=== PATIENT | female | born 1950 | race Caucasian/White ===

== ENCOUNTER 2016-08-09 08:49 | Emergency (ER) | payer OTHER ==
[2016-08-09 08:57] VITALS: BP 150/68; PULSE 70; TEMP 99.2; BMI 24.4
--- NOTE | 2016-08-09 08:59 | PDOC ---
History of Present Illness - General Chief Complaint: Lightheaded Stated Complaint: LIGHT HEADEDNESS/HEAD AHCE Time Seen by Provider: 08/09/16 08:59 History Source: Patient, Old Records Exam Limitations: No Limitations - History of Present Illness Initial Comments: 08/09/16 09:02 65-year-old female with history of h presents to of 3 day history of nasal congestion, fullness in her head and elevated blood pressure at home. The patient has a nonproductive cough.he patient has been keeping a record of her blood pressure at home and has noted her blood pressures to be with systolic pressures in the 155 range at times with an elevated heart rate. The patient denies chest pain, shortness of breath, nausea, vomiting, diarrhea. She does state that she has a"sour feeling "in her stomach at times. the patient also states that she has been having cold like symptoms since the beginning of the new year and has been seen at an urgent care center for the symptoms. Past History - Past Medical History Allergies/Adverse Reactions: Allergies Allergy/AdvReac Type Severity Reaction Status Date / Time No Known Allergies Allergy Verified 08/09/16 08:51 Home Medications: Ambulatory Orders Famotidine [Pepcid -] 20 mg PO DAILY #30 tablet 08/09/16 Lisinopril 5 mg PO DAILY 08/09/16 Metoprolol Tartrate 0 mg PO ASDIR 08/09/16 Oseltamivir Phosphate [Tamiflu -] 75 mg PO BID #10 capsule 08/09/16 Anemia: No Asthma: No Cancer: No Cardiac Disorders: No Hx Myocardial Infarction: No CVA: No COPD: No CHF: No DVT: No Dementia: No Diabetes: No Dialysis: No GI Disorders: Yes (GERD) Disorders: No HTN: Yes Hypercholesterolemia: No HIV: No Kidney Stones: No Liver Disease: No Psychiatric Problems: No Suicide Attempt (Hx): No Seizures: No Thyroid Disease: No - Surgical History Abdominal Surgery: No Appendectomy: No Cardiac Surgery: No Cholecystectomy: No Gastric Stapling: No GI Surgery: No Lung Surgery: No Neurologic Surgery: No Orthopedic Surgery: No - Psycho/Social/Smoking Cessation Hx Anxiety: No Suicidal Ideation: No Smoking History: Never smoked Information on smoking cessation initiated: No Hx Alcohol Use: No Drug/Substance Use Hx: No Substance Use Type: None Review of Systems - Review of Systems Constitutional: Yes: Fever (subjective) HEENTM: No: Symptoms Reported Respiratory: Yes: Cough. No: Shortness of Breath, SOB with Exertion, SOB at Rest, Wheezing, Productive cough Cardiac (ROS): No: Symptoms Reported ABD/GI: No: Symptoms Reported : No: Symptoms Reported Musculoskeletal: No: Symptoms Reported Integumentary: No: Symptoms Reported Neurological: Yes: Headache *Physical Exam - Vital Signs Last Vital Signs Temp Pulse Resp BP Pulse Ox 99.2 F 70 18 150/68 99 08/09/16 08:50 08/09/16 08:50 08/09/16 08:50 08/09/16 08:50 08/09/16 08:50 - Physical Exam Comments: 08/09/16 09:06 GENERAL: Well developed, well nourished. Awake and alert. No acute distress. HEENT: Normocephalic, atraumatic. PERRLA, EOMI. No conjunctival pallor. Sclera are non- icteric. Moist mucous membranes. Oropharynx is clear. NECK: Supple. Full ROM. No JVD. No lymphadenopathy. CARDIOVASCULAR: Regular rate and rhythm. No murmurs, rubs, or gallops. Distal pulses are 2+ and symmetric. PULMONARY: No evidence of respiratory distress. Lungs clear to auscultation bilaterally. No wheezing, rales or rhonchi. ABDOMINAL: Soft. Non-tender. Non-distended. No rebound or guarding. No organomegaly. Normoactive bowel sounds. MUSCULOSKELETAL Normal range of motion at all joints. No bony deformities or tenderness. No CVA tenderness. EXTREMITIES: No cyanosis. No clubbing. No edema. No calf tenderness. SKIN: Warm and dry. Normal capillary refill. No rashes. No jaundice. NEUROLOGICAL: Alert, awake, appropriate. Cranial nerves 2-12 intact. Grossly non-focal exam. PSYCHIATRIC: Cooperative. Good eye contact. Appropriate mood and affect. ED Treatment Course - LABORATORY CBC & Chemistry Diagram: 08/09/16 09:11 08/09/16 09:11 Medical Decision Making - Medical Decision Making 08/09/16 09:06 65-year-old female with history of hypertension who presents to the emergency Department with complaints of elevated blood pressure at home, cough, nasal and sinus congestion. Her blood pressure is mildly elevated inthe ED. Differential diagnosis includes but is not limited to: URI, influenza, sinusitis , atypical presentation of ACS, toxic/metabolic derangement. Plan: 1. Labs and urine 2. EKG 3. Influenza PCR 4. Observe and re-evaluate 08/09/16 11:13 Addendum: The labs were reviewed and are noted in the EMR. Thepatient is positive for influenza A. Will discharge on Tamiflu 75mg BID. Will also discharge with Rx for pepcid. The patient has a follow-up appointment with her PCP on Monday. I have encouraged her to keep that appointment. I have also advised the patient htat she may return to the ED if her Sx persist, worsen or new Sx arise. *DC/Admit/Observation/Transfer Diagnosis at time of Disposition: Upper respiratory tract infection due to influenza A virus - Discharge Dispostion Disposition: HOME Condition at time of disposition: Stable Admit: No - Prescriptions Prescriptions: Famotidine [Pepcid -] 20 mg PO DAILY #30 tablet Oseltamivir Phosphate [Tamiflu -] 75 mg PO BID #10 capsule - Referrals Referrals: Antoinette Thorpe MD [Primary Care Provider] - - Patient Instructions Printed Discharge Instructions: DI for Influenza -- Adult Additional Instructions: You tested positive for influenza A. You are being prescribed Tamiflu 75mg. Take one tablet twice daily for 5 dyas. You are also being prescribed pepcid for your upset stomach--one one tablet daily. Please keep your appointment with your primary care physician on Monday. You may return to the Emergency Department if your symptoms persist, worsen or new symptoms arise.
[2016-08-09 09:23] LABS: BASOPHIL 0.2 % (0-2.0); EOSINOPHIL 0.8 % (0-4.5); MCH 24.5 pg (25.7-33.7); MCHC 31.6 g/dl (32.0-36.0); MEAN CELL VOLUME 77.7 fl (80-96); MEAN PLT VOLUME 7.6 fl (7.5-11.1); PLATELET COUNT 229 K/MM3 (134-434); RDW 13.6 % (11.6-15.6); WHITE BLOOD COUNT 3.8 K/mm3 (4.0-10.0)
[2016-08-09 09:26] LABS: URINE APPEARANCE Clear; URINE BILIRUBIN Negative (NEGATIVE); URINE BLOOD Negative (NEGATIVE); URINE COLOR YELLOW; URINE GLUCOSE (UA) Negative (NEGATIVE); URINE KETONE Negative (NEGATIVE); URINE LEUK ESTERASE Negative (NEGATIVE); URINE NITRITE Negative (NEGATIVE); URINE PROTEIN Negative (NEGATIVE); URINE UROBILINOGEN 0.2 E.U/dl (0.2-1.0)
[2016-08-09 09:29] LABS: NEUTROPHILS 69.4 % (42.8-82.8)
[2016-08-09 09:58] LABS: ALBUMIN 3.9 g/dl (3.5-5.0); ALK PHOS 59 U/L (32-92); ANION GAP 7 (8-16); BILIRUBIN,TOTAL 0.9 mg/dl (0.2-1.0); CO2 25 mmol/L (22-28); CPK(DFH) 63 IU/L (26-140); CREATININE 0.8 mg/dl (0.6-1.3); GLUCOSE,RANDOM 108 mg/dl (74-106); SGOT/AST 18 U/L (10-42); SGPT/ALT 12 U/L (10-40); TOT PROT 8.2 g/dl (6.4-8.3)
[2016-08-09 10:05] LABS: TROPONIN I (DFP) < 0.03 ng/ml (0.03-0.50)
--- NOTE | 2016-08-09 23:32 | EKG ---
Test Reason : Blood Pressure : / mmHG Vent. Rate : 125 BPM Atrial Rate : 125 BPM P-R Int : 170 ms QRS Dur : 064 ms QT Int : 196 ms P-R-T Axes : 055 007 070 degrees QTc Int : 282 ms SINUS RHYTHM INFERIOR INFARCT , AGE UNDETERMINED ABNORMAL ECG NO PREVIOUS ECGS AVAILABLE Confirmed by MENA ROSALES MD ([id number]) on 08/09/2016 11:32:08 PM Referred By: MD MATTA Confirmed By:MENA ROSALES MD
== END 2016-08-09 11:25 | disposition home or self-care (01) ==
LOC: SUPCPDRO 08:49 → FER 08:49
DX: J09.X2 Influenza due to identified novel influenza A virus with other respiratory manifestations (principal); I10 Essential (primary) hypertension; K21.9 Gastro-esophageal reflux disease without esophagitis
CPT/HCPCS: 36415; 80053; 81003; 82550; 83690; 84484; 85025; 87804; 93005; 99282-25

== ENCOUNTER 2016-11-17 09:39 | Emergency (ER) | payer OTHER ==
[2016-11-17 09:48] VITALS: TEMP 98.6; BMI 24.4
--- NOTE | 2016-11-17 09:54 | PDOC ---
History of Present Illness - General Chief Complaint: Blood Pressure Problem Stated Complaint: HIGH BLOOD PRESSURE Time Seen by Provider: 11/17/16 09:41 History Source: Patient Exam Limitations: No Limitations - History of Present Illness Initial Comments: 11/17/16 09:51 66 y/o female with elevated blood pressure this morning. patient is monitoring and noticed it was 180/90. Called her PMD and advised to come to ER since office does not open to 10 am. Patient denies chest pain, SOB, back pain, or weakness. No headache or blurred vision. Feels fine now. Currently on Metoprolol and Lisinopril. Severity: mild Past History - Past Medical History Allergies/Adverse Reactions: Allergies Allergy/AdvReac Type Severity Reaction Status Date / Time No Known Allergies Allergy Verified 11/17/16 09:40 Home Medications: Ambulatory Orders Lisinopril 5 mg PO DAILY 08/09/16 Metoprolol Tartrate 0 mg PO ASDIR 08/09/16 Anemia: No Asthma: No Cancer: No Cardiac Disorders: No CVA: No COPD: No CHF: No DVT: No Dementia: No Diabetes: No Dialysis: No GI Disorders: Yes (GERD) Disorders: No HTN: Yes Hypercholesterolemia: No HIV: No Kidney Stones: No Liver Disease: No Psychiatric Problems: No Suicide Attempt (Hx): No Seizures: No Thyroid Disease: No - Surgical History Abdominal Surgery: No Appendectomy: No Cardiac Surgery: No Cholecystectomy: No Gastric Stapling: No GI Surgery: No Lung Surgery: No Neurologic Surgery: No Orthopedic Surgery: No - Psycho/Social/Smoking Cessation Hx Anxiety: No Suicidal Ideation: No Smoking History: Never smoked Hx Alcohol Use: (occasional) Drug/Substance Use Hx: No Substance Use Type: None Review of Systems - Review of Systems Able to Perform ROS?: Yes Is the patient limited Polish proficient: No Constitutional: No: Chills, Fever Respiratory: No: Cough, Shortness of Breath Cardiac (ROS): No: Chest Pain ABD/GI: No: Nausea, Vomiting Neurological: No: Headache, Weakness All Other Systems: Reviewed and Negative *Physical Exam - Vital Signs Last Vital Signs Temp Pulse Resp BP Pulse Ox 98.6 F 90 18 169/74 100 11/17/16 09:40 11/17/16 09:40 11/17/16 09:40 11/17/16 09:40 11/17/16 09:40 - Physical Exam General Appearance: Yes: Nourished, Appropriately Dressed. No: Apparent Distress HEENT: positive: EOMI, RODERICK, Normal ENT Inspection, Pharynx Normal Neck: positive: Trachea midline, Normal Thyroid, Supple Respiratory/Chest: positive: Lungs Clear, Normal Breath Sounds. negative: Chest Tender, Respiratory Distress Cardiovascular: positive: Regular Rhythm, Regular Rate, S1, S2. negative: Edema , JVD, Murmur Gastrointestinal/Abdominal: positive: Normal Bowel Sounds, Flat, Soft. negative : Organomegaly, Pulsatile Mass Musculoskeletal: positive: Normal Inspection. negative: CVA Tenderness Extremity: positive: Normal Capillary Refill, Normal Inspection, Normal Range of Motion Integumentary: positive: Normal Color, Dry, Warm Neurologic: positive: oracle bpm developer II-XII NML intact, Fully Oriented, Alert, Normal Mood/ Affect (strength 5+/5 b/l in UE and LE, no focal deficits noted), Normal Response, Motor Strength 5/5 Heart Score/ECG Review - ECG Intrepretation Rhythm: Regular Rhythm Comment:: 11/17/16 10:11 rate 78 - Harrison Harrison: Normal - ST and T Early Repolarization: No Non Specific ST-T Wave changes: No - ECG Impressions Comment:: 11/17/16 10:11 occ PVC ED Treatment Course - ADDITIONAL ORDERS Additional order review: 11/17/16 10:12 Pt with elevated BP, may need adjustment with meds Spoke with PMD Dr. Cervantes at 10 10am and will see pt in office if worsen return to ER Pt is in agreement with plan *DC/Admit/Observation/Transfer Diagnosis at time of Disposition: Hypertension Qualifiers: Hypertension type: essential hypertension Qualified Code(s): I10 - Essential ( primary) hypertension - Discharge Dispostion Disposition: HOME Condition at time of disposition: Stable Admit: No - Patient Instructions Printed Discharge Instructions: DI for High Blood Pressure Additional Instructions: Continue current blood pressure medications Follow up with PMD If worsen return to ER
[2016-11-17 10:55] VITALS: BP 137/84; PULSE 87
--- NOTE | 2016-11-18 17:30 | EKG ---
Test Reason : Blood Pressure : / mmHG Vent. Rate : 078 BPM Atrial Rate : 065 BPM P-R Int : 162 ms QRS Dur : 070 ms QT Int : 382 ms P-R-T Axes : 060 008 050 degrees QTc Int : 435 ms SINUS RHYTHM LOW VOLTAGE QRS INFERIOR INFARCT (CITED ON OR BEFORE 09-AUG-2016) WHEN COMPARED WITH ECG OF 09-AUG-2016 09:06, COMPARED TO EKG NO SIGNIFICANT CHANGE IS FOUND Confirmed by MD MOSHE, CHUCHO ([id number]) on 11/18/2016 5:29:39 PM Referred By: ELIZA GUIDO Confirmed By:CHUCHO MESA MD
== END 2016-11-17 10:30 | disposition home or self-care (01) ==
LOC: FER 09:39
DX: I10 Essential (primary) hypertension (principal); K21.9 Gastro-esophageal reflux disease without esophagitis
CPT/HCPCS: 93005; 99284-25